=== PATIENT | male | born 1960 | race Hispanic/Latino ===

== ENCOUNTER 2020-06-22 17:56 | Emergency (ER) | payer MEDICARE ==
[2020-06-22 18:23] VITALS: BP 188/112
--- NOTE | 2020-06-22 19:27 | Emergency Department Report ---
ED Medical Clearance HPI - General Chief complaint: High BP Stated complaint: HIGH BLOOD PRESSURE Source: patient Mode of arrival: Ambulatory - History of Present Illness Initial comments: 60-year-old male presents to the emergency room reporting that he needs a refill on his medication. Patient states that he is at the [facility] and they have not sent his medications to the pharmacy for the last 3 days. Patient comes in with a blood pressure 188/112. Patient denies any headache no shortness of breath or chest pain. Patient reports that he is on Coreg 6.25 mg twice daily, losartan 100 mg p.o. daily. Onset/Timin -: days(s) Alledged Intoxication: No Compliant with Home Medications: No Home medications: Previous Rx's Medication Instructions Recorded Last Taken Type Losartan [Cozaar] 100 mg PO QDAY #30 tablet 06/22/20 Unknown Rx carvediloL [Coreg] 6.25 mg PO BID #60 tablet 06/22/20 Unknown Rx predniSONE [Deltasone] 20 mg PO QDAY 5 Days #5 tab 06/22/20 Unknown Rx Allergies/Adverse reactions: Allergies Allergy/AdvReac Type Severity Reaction Status Date / Time No Known Allergies Allergy Unverified 06/22/20 18:21 ED Review of Systems ROS: Stated complaint: HIGH BLOOD PRESSURE Other details as noted in HPI Comment: All other systems reviewed and negative ED Past Medical Hx - Past Medical History Previous Medical History?: Yes Hx Hypertension: Yes Hx Psychiatric Treatment: Yes (ETOH abuse) Additional medical history: gout in the left ankle - Surgical History Past Surgical History?: Yes Hx Coronary Stent: Yes Additional Surgical History: Left knee replacement - Social History Smoking Status: Current Every Day Smoker Substance Use Type: Alcohol - Medications Home Medications: Home Medications Medication Instructions Recorded Confirmed Last Taken Type Losartan [Cozaar] 100 mg PO QDAY #30 tablet 06/22/20 Unknown Rx carvediloL [Coreg] 6.25 mg PO BID #60 tablet 06/22/20 Unknown Rx predniSONE [Deltasone] 20 mg PO QDAY 5 Days #5 tab 06/22/20 Unknown Rx ED Physical Exam - General Limitations: No Limitations General appearance: alert, in no apparent distress - Head Head exam: Present: atraumatic, normocephalic - Eye Eye exam: Present: normal appearance - ENT ENT exam: Present: mucous membranes moist - Neck Neck exam: Present: normal inspection - Respiratory Respiratory exam: Present: normal lung sounds bilaterally. Absent: accessory muscle use - Cardiovascular Cardiovascular Exam: Present: regular rate, normal rhythm. Absent: systolic mur mur, diastolic murmur, rubs, gallop - Expanded Lower Extremity Exam Left Upper Leg exam: Present: normal inspection, full ROM Knee exam: Present: normal inspection, full ROM Lower Leg exam: Present: normal inspection, full ROM Ankle exam: Present: tenderness, swelling, erythema Foot/Toe exam: Present: full ROM, tenderness, swelling, erythema Neuro vascular tendon exam: Present: no vascular compromise Gait: Positive: observed and limited by pain - Back Exam Back exam: Present: normal inspection - Neurological Exam Neurological exam: Present: alert, oriented X3 - Psychiatric Psychiatric exam: Present: normal affect, normal mood - Skin Skin exam: Present: warm, dry, intact, normal color. Absent: rash ED Course Vital Signs 06/22/20 18:20 Temperature 98.4 F Pulse Rate 98 H Respiratory 16 Rate Blood Pressure 188/112 O2 Sat by Pulse 94 Oximetry ED Medical Decision Making - Medical Decision Making 60-year-old male presents to the emergency room reporting that he needs a refill on his medication. Patient states that he is at the [facility] and they have not sent his medications to the pharmacy for the last 3 days. Patient comes in with a blood pressure 188/112. Patient denies any headache no shortness of breath or chest pain. Patient reports that he is on Coreg 6.25 mg twice daily, losartan 100 mg p.o. daily. Patient will be discharged home on Coreg 6.25 mg twice daily, losartan 100 mg p.o. Patient is to follow-up with his primary care provider. Gout exacerbation we will place him on prednisone 20 mg daily for the next 5 days. ED Disposition Clinical Impression: Hypertension, Exacerbation of gout Disposition: DC-01 TO HOME OR SELFCARE Is pt being admited?: No Does the pt Need Aspirin: No Condition: Stable Instructions: Hypertension (ED), Hypertension, Adult, [id number], Low-Purine Eating Plan Additional Instructions: Please take blood pressure medications as prescribed. Take your prednisone as prescribed. He can take [id number] melatonin for sleep. Increase your water intake avoid red meats wine beer and steaks or shellfish. Prescriptions: carvediloL [Coreg] 6.25 mg PO BID #60 tablet Losartan [Cozaar] 100 mg PO QDAY #30 tablet predniSONE [Deltasone] 20 mg PO QDAY 5 Days #5 tab Referrals: your,primary Care provider [Other] - 3-5 Days
== END 2020-06-22 19:30 | disposition home or self-care (01) ==
LOC: ED 17:56
DX: I10 Essential (primary) hypertension (principal); M10.9 Gout, unspecified; F17.200 Nicotine dependence, unspecified, uncomplicated; Z98.890 Other specified postprocedural states; Z79.899 Other long term (current) drug therapy
CPT/HCPCS: 99282